=== PATIENT | female | born 1995 | race African-American/Black ===

== ENCOUNTER 2017-03-21 12:08 | Emergency (ER) | payer MEDICAID, OTHER ==
[~2017-03-21] VITALS: Ht 160 cm; Wt 111.0 kg
[~2017-03-21 12:08] MED LIST: HYDR-519 PO; NO MEDS; OMEP20TA2 PO
[2017-03-21 19:56] VITALS: BP 109/63
[2017-03-21 21:55] LABS: KETONES URINE 2+ (NEGATIVE); LEUKOCYTE ESTERASE URINE 3+ (NEGATIVE); NITRITE URINE POSITIVE (NEGATIVE); OCCULT BLOOD URINE 3+ (NEGATIVE); PH URINE 5.5 (4.5-8.0); PROTEIN URINE 3+ (NEGATIVE); SPECIFIC GRAVITY URINE 1.028 (1.005-1.030)
[2017-03-21 21:57] LABS: CLARITY URINE BLOODY (CLEAR); COLOR URINE RED (YELLOW)
== END 2017-03-21 22:29 | disposition left against medical advice (07) ==
LOC: ER 13:36
DX: R10.9 Unspecified abdominal pain (principal); Z53.21 Procedure and treatment not carried out due to patient leaving prior to being seen by health care provider
CPT/HCPCS: 81001; 81025